=== PATIENT | female | born 1965 | race Caucasian/White ===

== ENCOUNTER 2018-07-14 08:04 | Emergency (ER) | payer BC ==
[2018-07-14 08:22] VITALS: BP 140/85
--- NOTE | 2018-07-14 08:31 | UC ---
Respiratory Complaint HPI - HPI Summary HPI Summary: Per food editor "c/o productive cough and chest congestion x 4 days. States diagnosed with bronchitis last week. " -no fever. no sinus pain. no wheezing. biggest c/o is PND. uses mucinex nasal spray -she was on amox for ear infection just prior to onset. so was her when his sx started. he was given prednisone. -she was on low dose prednisone in past w/o any complications. - History of Current Complaint Chief Complaint: UCRespiratory Stated Complaint: COUGH,CONGESTION Time Seen by Provider: 07/14/18 08:16 Pain Intensity: 0 - Allergies/Home Medications Allergies/Adverse Reactions: Allergies Allergy/AdvReac Type Severity Reaction Status Date / Time erythromycin base Allergy Hives Verified 07/14/18 08:19 morphine Allergy Headache Verified 07/14/18 08:19 Home Medications: Home Medications Chlorpheniramine/Dextromethorp [Coricidin Hbp Cough & Cold Tab] 1 tab PO BID 07/31 [History Confirmed 07/14/18] PMH/Surg Hx/FS Hx/Imm Hx Previously Healthy: Yes - Surgical History Surgical History: Yes Surgery Procedure, Year, and Place: Cscection. hysterectomy. ooprechtomy. knee surgery. Removal of kidney stone - Family History Known Family History: Positive: Hypertension - Social History Alcohol Use: Rare Substance Use Type: None Smoking Status (MU): Never Smoked Tobacco Review of Systems All Other Systems Reviewed And Are Negative: Yes Constitutional: Positive: Negative Skin: Positive: Negative Eyes: Positive: Negative ENT: Positive: Nasal Discharge Respiratory: Positive: Cough Cardiovascular: Positive: Negative Gastrointestinal: Positive: Negative Genitourinary: Positive: Negative Motor: Positive: Negative Neurovascular: Positive: Negative Musculoskeletal: Positive: Negative Neurological: Positive: Negative Psychological: Positive: Negative Is Patient Immunocompromised?: No Physical Exam Triage Information Reviewed: Yes Appearance: Well-Nourished, Ill-Appearing - + nasal congestion, stuffy nose. Vital Signs: Initial Vital Signs Temp 98.5 F 07/14/18 08:15 Pulse 86 07/14/18 08:15 Resp 18 07/14/18 08:15 BP 140/85 07/14/18 08:15 Pulse Ox 98 07/14/18 08:15 Vital Signs Reviewed: Yes Eye Exam: Normal ENT: Positive: Pharyngeal erythema - + PMD, TMs normal, Uvula midline. Negative : TM bulging, TM dull, TM red, Tonsillar swelling, Tonsillar exudate, Sinus tenderness Neck exam: Normal Neck: Positive: Supple, Nontender, No Lymphadenopathy Respiratory Exam: Normal Respiratory: Positive: Lungs clear, No respiratory distress, No accessory muscle use, Decreased breath sounds - mild b/l. no wheezing.. Negative: Crackles, Rhonchi, Stridor, Wheezing Cardiovascular Exam: Normal Cardiovascular: Positive: RRR Abdominal Exam: Normal Abdomen Description: Positive: Nontender, Soft Musculoskeletal Exam: Normal Neurological Exam: Normal Psychological Exam: Normal Skin Exam: Normal UC Diagnostic Evaluation - Laboratory O2 Sat by Pulse Oximetry: 98 Respiratory Course/Dx - Course Course Of Treatment: no e/o bacterial infection. bronchitis. albuterol & medrol dose pack. -recommend netti pot and flonase. -f/u if sx increase or persist, she is very agreeable w/ plan - Differential Dx/Diagnosis Differential Diagnosis/HQI/PQRI: Asthma, Bronchitis, Lower Resp Infection, Sinusitis Provider Diagnosis: Bronchitis Discharge - Sign-Out/Discharge Documenting (check all that apply): Patient Departure All imaging exams completed and their final reports reviewed: No Studies - Discharge Plan Condition: Stable Disposition: HOME Prescriptions: Albuterol HFA INHALER* [Ventolin HFA Inhaler*] 2 puff INH Q4H PRN 15 Days #1 mdi PRN Reason: Cough methylPREDNISolone [Medrol Dosepak 4 MG*] 4 mg PO DAILY #1 haim Patient Education Materials: Acute Bronchitis (ED) Referrals: Clinton Jalloh MD [Primary Care Provider] - Additional Instructions: There is no evidence for any bacterial infection at this time. -We discussed risks of prednisone including but not limited to anxiety, agitation, insomnia, GI upset, elevated blood pressures and blood sugar readings , adrenal crisis and avascular necrosis of the hip. -The albuterol will help the cough as well. - Billing Disposition and Condition Condition: STABLE Disposition: Home
== END 2018-07-14 08:59 | disposition home or self-care (01) ==
LOC: UCCORT 08:04
DX: J40 Bronchitis, not specified as acute or chronic (principal); R09.82 Postnasal drip; R09.81 Nasal congestion; R09.89 Other specified symptoms and signs involving the circulatory and respiratory systems; Z88.1 Allergy status to other antibiotic agents; Z88.5 Allergy status to narcotic agent
CPT/HCPCS: 99212; G0463

== ENCOUNTER 2019-07-21 11:34 | Emergency (ER) | payer BC ==
--- OUTSIDE RECORDS SUMMARY | 2019-07-21 11:44 | XMS REPORT | Continuity of Care Document ---
:1965 External Reference #:[id number] Author Name Clinton Jalloh M.D. Address [address] [facility] [address] [place] [address] Problems Active Problems Provider Date Uric acid urolithiasis Juma Kennedy BUMPER OPERATOR Onset: 01/11/2012 Benign essential hypertension Clinton Jalloh M.D. Onset: 01/11/2012 Refractory migraine with aura Clinton Jalloh M.D. Onset: 01/11/2012 Arthralgia of the lower leg Clinton Jalloh M.D. Onset: 01/11/2012 Degeneration of cervical intervertebral disc Juma Kennedy BUMPER OPERATOR Onset: 2011 Kidney stone Juma Kennedy BUMPER OPERATOR Onset: 04/28/2015 Essential hypertension Juma Kennedy BUMPER OPERATOR Onset: 04/28/2015 Social History Type Date Description Comments Sex Unknown ETOH Use Denies alcohol use Tobacco Use Start: Unknown Patient has never smoked Smoking Status Reviewed: 06/27/17 Patient has never smoked Seat Belt/Car Seat Always uses seat belt Smoke Alarms Carbon Monoxide Detector: Yes Smoke Alarms Yes Allergies, Adverse Reactions, Alerts Active Allergies Reaction Severity Comments Date Erythromycin 01/11/2012 Morphine Augmentin Urticaria 06/22/2015 Medications Active Medications SIG Qnty Indications Ordering Provider Date Ibuprofen 1 by mouth three 90tabs M54.5 Clinton Jalloh, 02/05/2018 800mg Tablets times a day as M.D. needed M54.2 M15.9 Cyclobenzaprine HCL 1 tab by mouth 90tabs M54.5 Clinton Jalloh, 2017 10mg Tablets three times a day M.D. as needed for muscle spasms Atenolol 1/2 tab by mouth 45tabs I10 Shubham Ronnidanilo Menon, 05/31/2017 100mg Tablets every evening M.D. Alprazolam 1 tab by mouth 45tabs F41.9 ShubhamClinton yu, 06/17/2016 0.5mg Tablets three times a day M.D. Sumatriptan Succinate tab one at onset 30tabs G43.119 Clinton Jalloh, 100mg of h/a may repeat M.D. Tablets x1 after 2 hours G43.009 Hydrochlorothiazide tab one by mouth 90caps I10 Clinton Jalloh, 12.5mg Capsules every day M.D. Immunizations CPT Code Status Date Vaccine Lot # [id number] Refused 04/28/2015 Flu Vaccine [id number] Refused 04/10/2014 Flu Vaccine Vital Signs Date Vital Result Comment 05/24/2019 8:34am BP Systolic 124 mmHg BP Diastolic 66 mmHg Height 63.5 inches 5'3.50" Weight 234.00 lb BMI (Body Mass Index) 40.8 kg/m2 Heart Rate 67 /min Respiratory Rate 16 /min 03/06/2019 11:05am BP Systolic 122 mmHg BP Diastolic 64 mmHg Height 63.5 inches 5'3.50" Weight 236.00 lb BMI (Body Mass Index) 41.1 kg/m2 Heart Rate 74 /min Respiratory Rate 16 /min Results Test Acquired Date Facility Test Result H/L Range Note Laboratory test 05/24/2019 [facility] T[facility], <pending> finding [address] [facility] (607)- - Uric Acid <pending> Vitamin D 25 Hydroxy <pending> Procedures Date Code Description Status 05/24/2019 69601 EKG Completed Medical Devices Description No Information Available Encounters Type Date Location Provider Dx Diagnosis Office Visit 05/24/2019 Etelvina ShubhamClinton yu, I10 Essential (primary) 8:30a M.D. hypertension E78.2 Mixed hyperlipidemia E66.01 Morbid (severe) obesity due to excess calories M54.2 Cervicalgia F41.9 Anxiety disorder, unspecified N20.0 Calculus of kidney L20.9 Atopic dermatitis, unspecified J30.9 Allergic rhinitis, unspecified G43.009 Migraine w/o aura, not intractable, w/o status migrainosus R07.9 Chest pain, unspecified M54.5 Low back pain M15.9 Polyosteoarthritis, unspecified E55.9 Vitamin D deficiency, unspecified F43.21 Adjustment disorder with depressed mood K57.32 Dvtrcli of lg int w/o perforation or abscess w/o bleeding Z00.01 Encounter for general adult medical exam w abnormal findings I45.10 Unspecified right bundle-branch block Office Visit 03/06/2019 11:00a Clinton Dinero, I10 Essential ( primary) M.DSushma hypertension E78.2 Mixed hyperlipidemia E66.01 Morbid (severe) obesity due to excess calories M54.2 Cervicalgia F41.9 Anxiety disorder, unspecified N20.0 Calculus of kidney L20.9 Atopic dermatitis, unspecified J30.9 Allergic rhinitis, unspecified G43.009 Migraine w/o aura, not intractable, w/o status migrainosus R07.9 Chest pain, unspecified M54.5 Low back pain M15.9 Polyosteoarthritis, unspecified E55.9 Vitamin D deficiency, unspecified F43.21 Adjustment disorder with depressed mood Assessments Date Code Description Provider 05/24/2019 I10 Essential (primary) hypertension Clinton Jalloh M.D. 05/24/2019 E78.2 Mixed hyperlipidemia Clinton Jalloh M.D. 05/24/2019 E66.01 Morbid (severe) obesity due to excess Clinton Jalloh M.D. calories 05/24/2019 M54.2 Cervicalgia Clinton Jalloh M.D. 05/24/2019 F41.9 Anxiety disorder, unspecified Clinton Jalloh M.D. 05/24/2019 N20.0 Calculus of kidney Clinton Jalloh M.D. 05/24/2019 L20.9 Atopic dermatitis, unspecified Clinton Jalloh M.D. 05/24/2019 J30.9 Allergic rhinitis, unspecified Clinton Jalloh M.D. 05/24/2019 G43.009 Migraine without aura, not intractable, Clinton Jalloh M.D. without status migrainosus 05/24/2019 R07.9 Chest pain, unspecified Clinton Jalloh M.D. 05/24/2019 M54.5 Low back pain Clinton Jalloh M.D. 05/24/2019 M15.9 Polyosteoarthritis, unspecified Clinton Jalloh M.D. 05/24/2019 E55.9 Vitamin D deficiency, unspecified Clinton Jalloh M.D. 05/24/2019 F43.21 Adjustment disorder with depressed mood Clinton Jalloh M.D. 05/24/2019 K57.32 Diverticulitis of large intestine without Clinton Jalloh M.D. perforation or abscess without bleeding 05/24/2019 Z00.01 Encounter for general adult medical Clinton Jalloh M.D. examination with abnormal findings 05/24/2019 I45.10 Unspecified right bundle-branch block Clinton Jalloh M.D. 03/06/2019 I10 Essential (primary) hypertension Clinton Jalloh M.D. 03/06/2019 E78.2 Mixed hyperlipidemia Clinton Jalloh M.D. 03/06/2019 E66.01 Morbid (severe) obesity due to excess Clinton Jalloh M.D. calories 03/06/2019 M54.2 Cervicalgia Clinton Jalloh M.D. 03/06/2019 F41.9 Anxiety disorder, unspecified Clinton Jalloh M.D. 03/06/2019 N20.0 Calculus of kidney Clinton Jalloh M.D. 03/06/2019 L20.9 Atopic dermatitis, unspecified Clinton Jalloh M.D. 03/06/2019 J30.9 Allergic rhinitis, unspecified Clinton Jalloh M.D. 03/06/2019 G43.009 Migraine without aura, not intractable, Clinton Jalloh M.D. without status migrainosus 03/06/2019 R07.9 Chest pain, unspecified Clinton Jalloh M.D. 03/06/2019 M54.5 Low back pain Clinton Jalloh M.D. 03/06/2019 M15.9 Polyosteoarthritis, unspecified Clinton Jalloh M.D. 03/06/2019 E55.9 Vitamin D deficiency, unspecified Clinton Jalloh M.D. 03/06/2019 F43.21 Adjustment disorder with depressed mood Clinton Jalloh M.D. Plan of Treatment Future Appointment(s):06/07/2019 2:30 pm - Clinton Jalloh M.D. at [email or web address] - Clinton Jalloh M.D.I10 Essential (primary) hypertensionComments:CHECK BP TIW ( PRN)F/U LABDIET AND FLUID COUNSELING LOW SODIUM DIETWT LOSSF/U LABE78.2 Mixed hyperlipidemiaComments:DIET REVIEWED CONTINUE DIETWT LOSSF/U LAB FBWE66.01 Morbid (severe) obesity due to excess caloriesComments:WT LOSS COUNCELLINGEXERCISEDIET COUNCILLING HANDOUT ON DIET GIVEN TO PT WITH EXTENSIVE TECHING EXTENSIVE TEACHING ON SURGICAL TX FEGDOLVJ50.2 CervicalgiaComments: EXERCISE/HEAT /MESSAGEAVOID HEAVY LIFTING WT LOSSTYLENOL OR MOTRIN PRNF41.9 Anxiety disorder, unspecifiedComments:COUNCELLING AND REASSURANCE RELAXATION TECHNIQUESSTRESSORS IN LIFE AVOID ALL ENERGY/HIGH CAFFEINE DRINKS DUR ZVZRTIJY46.0 Calculus of kidneyComments:F/U WITH UROLOGY PRNL20.9 Atopic dermatitis, unspecifiedComments:SKIN CARE INSTRUCTIONS LOTION OR BABY OIL 2-3 APPLICATION PER DAYUSE MOISTURIZING SOAPAVOID PROLONGED WATER EXPOSUREAVOID USING HOT WATER IN JAZYRTO78.9 Allergic rhinitis, unspecifiedComments:INCREASE PO FLUID USE ANTIHISTAMINE PRN SECOND HAND SMOKING JLJYHDXTCD17.009 Migraine without aura, not intractable, without status migrainosusComments:TYLENOL OR MOTRIN PRNRELAXATION/AVOID XAHEYAPIRN65.9 Chest pain, unspecifiedComments: EXERCISE/HEAT/MESSAGE TYLENOL OR MOTRIN PRNHEAT PACKM54.5 Low back painComments: EXERCISE/HEAT /MESSAGEAVOID HEAVY LIFTING WT LOSSTYLENOL OR MOTRIN PRN DUR XIZFOMDI82.9 Polyosteoarthritis, unspecifiedComments:EXERCISE/HEAT/ MESSAGETYLENOL OR MOTRIN PRNAVOID HEAVY LIFTINGWT LOSS DUR UULLTPIX72.9 Vitamin D deficiency, unspecifiedComments:INCREASE EXPOSURE TO SUNREVIEW OF DIETF43.21 Adjustment disorder with depressed moodComments:COUNCELLING AND REASSURANCE RELAXATION TECHNIQUESSTRESSORS IN LIFE AVOID ALL ENERGY/HIGH CAFFEINE EDMVIZH36.32 Diverticulitis of large intestine without perforation or abscess without bleedingComments:TYLENOL OR MOTRIN PRNINCREASE PO FLUID LAXATIVE PRN F/ U DIRECTEDF/U WITH GI PRNZ00.01 Encounter for general adult medical examination with abnormal findingsComments:GOOD NUTRITION /EXERCISEDENTAL/ FLOSSING/ SELF CAREDROWNING/ SUN SAFETYSEAT BELT/ DRIVING SAFETYSPORT BIKE/ HELMET USESPORTS/ INJURY PREVENTIONVIOLENCE PREVENTION/ GUN SAFETYPARENTING ADVICE"SAFE AT HOME"SEX EDUCATION/ COUNSELINGBREAST/ TESTICULAR SELF EXAMEDUCATION GOALS/ ACTIVITIESLIMIT TV/ INTERNETUSETOBACCO/ ALCOHOL/ DRUGS/ INHALANTSPEER REFUSAL SKILLSSOCIAL INTERACTIONFAMILY FUNCTIONINGSELF CONTROLDEPRESSION/ ANXIETYNEXT APPOINTMENTYEARLY PHYSICAL WELLNESS EVALUATION F /U WITH OB /E [employer] PROJECT MANAGER FOR PAP AND QMPXEUYWPK27.10 Unspecified right bundle-branch blockComments:STABLE AND ASYMPTOMATICF/U WITH CARDIOLOGY PRN Functional Status Description No Information Available Mental Status Description No Information Available Referrals Description No Information Available
--- OUTSIDE RECORDS SUMMARY | 2019-07-21 11:44 | XMS REPORT | Continuity of Care Document ---
:1965 External Reference #:[id number] Author Name Clinton Jalloh M.D. Address [address] [facility] [address] [place] [address] Problems Active Problems Provider Date Uric acid urolithiasis Juma Kennedy PUNCH PRESS OPERATOR HELPER Onset: 01/11/2012 Benign essential hypertension Clinton Jalloh M.D. Onset: 01/11/2012 Refractory migraine with aura Clinton Jalloh M.D. Onset: 01/11/2012 Arthralgia of the lower leg Clinton Jalloh M.D. Onset: 01/11/2012 Degeneration of cervical intervertebral disc Juma Kennedy PUNCH PRESS OPERATOR HELPER Onset: 2011 Kidney stone Juma Kennedy PUNCH PRESS OPERATOR HELPER Onset: 04/28/2015 Essential hypertension Juma Kennedy PUNCH PRESS OPERATOR HELPER Onset: 04/28/2015 Social History Type Date Description [...] Atenolol 1/2 tab by mouth 45tabs I10 Clinton Jalloh., 05/31/2017 100mg Tablets every evening M.D. Alprazolam 1 tab by mouth 45tabs F41.9 Clinton Jalloh., 06/17/2016 0.5mg Tablets three times a day M.D. Sumatriptan Succinate tab one at onset 30tabs G43.119 Clinton Jalloh., 100mg of h/a may repeat M.D. Tablets x1 after 2 hours G43.009 Hydrochlorothiazide tab one by mouth 90caps I10 Clinton Jalloh., 12.5mg Capsules every day M.D. Immunizations CPT Code Status Date Vaccine Lot # [id number] Refused 04/28/2015 Flu Vaccine 34863 Refused 04/10/2014 Flu Vaccine Vital Signs Date Vital Result Comment 05/27/2019 2:04pm BP Systolic 128 mmHg BP Diastolic 64 mmHg Height 63.5 inches 5'3.50" Weight 234.00 lb BMI (Body Mass Index) 40.8 kg/m2 Heart Rate 89 /min Respiratory Rate 16 /min 05/24/2019 8:34am BP Systolic 124 mmHg BP Diastolic 66 mmHg Height 63.5 inches 5'3.50" Weight 234.00 lb BMI (Body Mass Index) 40.8 kg/m2 Heart Rate 67 /min Respiratory Rate 16 /min Results Test Acquired Date Facility Test Result H/L Range Note CBC With Diff 05/24/2019 [facility] WBC 7.6 10*3/uL (4.1-11.0) [address] [facility] (607)- - RBC 5.29 10*6/uL (4.00-5.40) HGB 14.8 g/dL (12.0-16.0) HCT 44.2 % (36.0-47.0) MCV 83.7 fL (80.0-95.0) MCH 28.0 pg (27.0-32.0) MCHC 33.5 g/dL (32.0-36.0) RDW 13.9 % (10.5-14.5) PLT 232 10*3/uL (150-450) MPV 8.8 fL (7.1-10.7) Neut % 53.3 % (35.0-75.0) Lymph % 37.0 % (16.0-52.0) Payne % 6.4 % (0.0-8.0) Eos % 2.4 % (0.0-5.0) Baso % 0.9 % (0.0-4.0) Neut # 4.1 10*3/uL (1.8-7.7) Lymph # 2.8 10*3/uL (1.2-4.8) Payne # 0.5 10*3/uL (0.0-0.8) Eos # 0.2 10*3/uL (0.0-0.5) Baso # 0.1 10*3/uL (0.0-0.2) CMP 05/24/2019 [facility] Sodium 142 mmol/L (136-145) [address] [facility] (607)- - Potassium 3.9 mmol/L (3.6-5.2) Chloride 104 mmol/L (100-108) Co2 29 mmol/L (22-31) Anion Gap 9 mmol/L (7-16) Urea Nitrogen 17 mg/dL (7-24) Creatinine 0.82 mg/dL (0.60-1.00) BUN/Creat Ratio 20.7 RATIO High (10.0-20.0) Glucose 84 mg/dL (70-99) Calcium 9.7 mg/dL (8.4-10.2) Total Protein 7.3 g/dL (6.4-8.2) Albumin 4.4 g/dL (3.5-4.6) Globulin 2.9 g/dL (2.7-4.3) Alb/Glob Ratio 1.5 RATIO Alkaline Phosphatase 59 U/L (45-117) Bilirubin,Total 0.5 mg/dL (0.0-1.0) Ast (Sgot) 18 U/L (11-39) Alt (SGPT) 38 U/L (12-78) GFR >60 ml/min/1.73m2 (>59) GFR ( Amer) >60 ml/min/1.73m2 (>59) GFR Interpretation <SEE NOTE> 1 Lipid 05/24/2019 [facility] Cholesterol @ 210 mg/dL High (0-200) [facility] (607)- - Triglyceride @ 125 mg/dL (30-200) HDL Cholesterol @ 51 mg/dL (>40) 2 Chol/HDL Ratio 4.1 RATIO 3 LDL Chol (Calc) 134 mg/dL High (<130) 4 Laboratory 05/24/2019 [facility] TSH,Ultrasensitive @ 1.390 (0.360- 4.170) test finding [facility] mIU/L (607)- - Uric Acid 7.3 mg/dL High (2.6-6.0) 25 Hydroxy Vit D @ 27 ng/mL Low (31-100) 5 1 NORMAL KIDNEY FUNCTION OR MILD DISEASE - GFR >OR= 60 CHRONIC KIDNEY DISEASE - GFR 15 - 59 RENAL FAILURE - GFR <15 Est. GFR calculation based on the MDRD study equation, which assumes a steady state for creatinine. Est. GFR should not be used for medication dosing. 2 PER NCEP ATP III GUIDELINES: RESULTS LOWER THAN 40 MG/DL ARE SUGGESTIVE OF INCREASED RISK FOR CORONARY ARTERY DISEASE. RESULTS > OR = TO 60 MG/DL ARE CONSIDERED A NEGATIVE RISK FACTOR. 3 INTERPRETATION OF CHOL-HDL RATIO CHD RISK FEMALE MALE VERY HIGH >8.3 >14.3 HIGH 5.6- 8.3 6.7- 14.3 AVERAGE 3.7- 5.6 4.0- 6.7 BELOW AVERAGE 2.5- 3.7 2.7- 4.0 PROTECTED <2.5 <2.7 4 PER NCEP ATP III GUIDELINES: OPTIMAL < 100 NEAR OPTIMAL 100 - 129 BORDERLINE HIGH 130 - 159 HIGH 160 - 189 VERY HIGH > 189 5 A REVIEW OF THE LITERATURE SUGGESTS THE FOLLOWING RANGES FOR THE CLASSIFICATION OF 25-OH VITAMIN D STATUS: VITAMIN D STATUS 25-OH VITAMIN D DEFICIENCY <20 NG/ML INSUFFICIENCY 20-30 NG/ML SUFFICIENCY 31 - 100 NG/ML TOXICITY > 100 NG/ML A PEDIATRIC REFERENCE RANGE HAS NOT BEEN ESTABLISHED USING THIS METHOD. Procedures Date Code Description Status 05/24/2019 84093 EKG Completed Medical Devices Description No Information Available Encounters Type Date Location Provider Dx Diagnosis Office Visit 05/24/2019 Clinton Dinero, I10 Essential (primary) 8:30a M.D. hypertension E78.2 [...] 11:00a Clinton Dinero, I10 Essential ( primary) M.D. hypertension E78.2 Mixed hyperlipidemia E66.01 Morbid [...] depressed mood Assessments Date Code Description Provider 05/27/2019 I10 Essential (primary) hypertension Clinton Jalloh M.D. 05/27/2019 E78.2 Mixed hyperlipidemia Clinton Jalloh M.D. 05/27/2019 E66.01 Morbid (severe) obesity due to excess Clinton Jalloh M.D. calories 05/27/2019 M54.2 Cervicalgia Clinton Jalloh M.D. 05/27/2019 F41.9 Anxiety disorder, unspecified Clinton Jalloh M.D. 05/27/2019 N20.0 Calculus of kidney Clinton Jalloh M.D. 05/27/2019 L20.9 Atopic dermatitis, unspecified Clinton Jalloh M.D. 05/27/2019 J30.9 Allergic rhinitis, unspecified Clinton Jalloh M.D. 05/27/2019 G43.009 Migraine without aura, not intractable, Clinton Jalloh M.D. without status migrainosus 05/27/2019 R07.9 Chest pain, unspecified Clinton Jalloh M.D. 05/27/2019 M54.5 Low back pain Clinton Jalloh M.D. 05/27/2019 M15.9 Polyosteoarthritis, unspecified Clinton Jalloh M.D. 05/27/2019 E55.9 Vitamin D deficiency, unspecified Clinton Jalloh M.D. 05/27/2019 F43.21 Adjustment disorder with depressed mood Clinton Jalloh M.D. 05/27/2019 K57.32 Diverticulitis of large intestine without Clinton Jalloh M.D. perforation or abscess without bleeding 05/27/2019 I45.10 Unspecified right bundle-branch block Clinton Jalloh M.D. 05/24/2019 I10 Essential (primary) hypertension Clinton Jalloh [...] 05/24/2019 E55.9 Vitamin D deficiency, unspecified Clinton Jallho M.D. 05/24/2019 F43.21 Adjustment disorder with depressed [...] 2:30 pm - Clinton Jalloh M.D. at [email or web address] - Clinton Jalloh M.D.I10 Essential (primary) hypertensionComments:CHECK BP TIW ( PRN)F/U LABDIET AND FLUID COUNSELING LOW SODIUM DIETWT LOSSF/U LABE78.2 Mixed hyperlipidemiaComments:DIET REVIEWED CONTINUE DIETWT LOSSF/U LAB FBWE66.01 Morbid (severe) obesity due to excess caloriesComments:WT LOSS COUNCELLINGEXERCISEDIET COUNCILLING HANDOUT ON DIET GIVEN TO PT WITH EXTENSIVE TECHING EXTENSIVE TEACHING ON SURGICAL TX YWPTKJMD68.2 CervicalgiaComments: EXERCISE/HEAT /MESSAGEAVOID HEAVY LIFTING WT LOSSTYLENOL OR MOTRIN PRNF41.9 Anxiety disorder, unspecifiedComments:COUNCELLING AND REASSURANCE RELAXATION TECHNIQUESSTRESSORS IN LIFE AVOID ALL ENERGY/HIGH CAFFEINE DRINKS DUR XOKVZLPD58.0 Calculus of kidneyComments:F/U WITH UROLOGY PRNL20.9 Atopic dermatitis, unspecifiedComments:SKIN CARE INSTRUCTIONS LOTION OR BABY OIL 2-3 APPLICATION PER DAYUSE MOISTURIZING SOAPAVOID PROLONGED WATER EXPOSUREAVOID USING HOT WATER IN NEANMUU57.9 Allergic rhinitis, unspecifiedComments:INCREASE PO FLUID USE ANTIHISTAMINE PRN SECOND HAND SMOKING [id number] Migraine without aura, not intractable, without status migrainosusComments:TYLENOL OR MOTRIN PRNRELAXATION/AVOID CCVCNMDTRG09.9 Chest pain, unspecifiedComments: EXERCISE/HEAT/MESSAGE TYLENOL OR MOTRIN PRNHEAT PACKM54.5 Low back painComments: EXERCISE/HEAT /MESSAGEAVOID HEAVY LIFTING WT LOSSTYLENOL OR MOTRIN PRN DUR GRETXMNG97.9 Polyosteoarthritis, unspecifiedComments:EXERCISE/HEAT/ MESSAGETYLENOL OR MOTRIN PRNAVOID HEAVY LIFTINGWT LOSS DUR NFLSCCVD69.9 Vitamin D deficiency, unspecifiedComments:INCREASE EXPOSURE TO SUNREVIEW OF DIETF43.21 Adjustment disorder with depressed moodComments:COUNCELLING AND REASSURANCE RELAXATION TECHNIQUESSTRESSORS IN LIFE AVOID ALL ENERGY/HIGH CAFFEINE EHMTNBH89.32 Diverticulitis of large intestine without perforation or abscess without bleedingComments:TYLENOL OR MOTRIN PRNINCREASE PO FLUID LAXATIVE PRN F/ U DIRECTEDF/U WITH GI PRNI45.10 Unspecified right bundle-branch blockComments :STABLE AND ASYMPTOMATICF/U WITH CARDIOLOGY PRN Functional Status Description No Information Available Mental Status Description No Information Available Referrals Description No Information Available
[2019-07-21 12:17] VITALS: BP 147/85
[2019-07-21 14:03] LABS: Influenza A Molecular POSITIVE (Negative)
--- NOTE | 2019-07-21 14:28 | UC ---
FLU HPI - HPI Summary HPI Summary: Pt presents with c/o sudden onset of fever, chills, body aches, cough and ear pain X 2 days. - History of Current Complaint Chief Complaint: UCHeadahugh Stated Complaint: COUGH,CHILLS,FEVER,DIARRHEA Time Seen by Provider: 07/21/19 13:52 Hx Obtained From: Patient ?: No Onset/Duration: Sudden Onset, Lasting Days, Still Present Severity Currently: Moderate Severity Initially: Moderate Pain Intensity: 2 Associated Signs & Symptoms: Positive: Fever, Myalgia, Cough, Nasal Congestion Related Hx: Possible Flu/Infectious Exposure - Risk Factors Influenza Risk Factors: Negative - Allergy/Home Medications Allergies/Adverse Reactions: Allergies Allergy/AdvReac Type Severity Reaction Status Date / Time erythromycin base Allergy Hives Verified 07/21/19 12:17 morphine Allergy Headache Verified 07/21/19 12:17 PMH/Surg Hx/FS Hx/Imm Hx Previously Healthy: Yes - Surgical History Surgical History: Yes Surgery Procedure, Year, and Place: Cscection. hysterectomy. ooprechtomy. knee surgery. Removal of kidney stone - Family History Known Family History: Positive: Hypertension - Social History Occupation: Employed Full-time Lives: With Family Alcohol Use: Occasionally Substance Use Type: None Smoking Status (MU): Never Smoked Tobacco Have You Smoked in the Last Year: No - Immunization History Vaccination Up to Date: No Review of Systems All Other Systems Reviewed And Are Negative: Yes Constitutional: Positive: Fever, Chills, Fatigue Skin: Positive: Negative Eyes: Positive: Negative ENT: Positive: Ear Ache, Sinus Congestion Respiratory: Positive: Cough Cardiovascular: Positive: Negative Gastrointestinal: Positive: Negative Genitourinary: Positive: Negative Motor: Positive: Negative Neurovascular: Positive: Negative Musculoskeletal: Positive: Myalgia Neurological: Positive: Headache Psychological: Positive: Negative Is Patient Immunocompromised?: No Physical Exam Triage Information Reviewed: Yes Appearance: Ill-Appearing Vital Signs: Initial Vital Signs Temp 97.6 F 07/21/19 12:13 Pulse 72 07/21/19 12:13 Resp 18 07/21/19 12:13 BP 147/85 07/21/19 12:13 Pulse Ox 99 07/21/19 12:13 Vital Signs Reviewed: Yes Eye Exam: Normal ENT: Positive: Nasal congestion, TM bulging Dental Exam: Normal Neck exam: Normal Respiratory Exam: Normal Cardiovascular Exam: Normal Musculoskeletal Exam: Normal Neurological Exam: Normal Psychological Exam: Normal Skin Exam: Normal Flu Course/Dx - Differential Dx/Diagnosis Differential Diagnosis/HQI/PQRI: Influenza, Upper Respiratory Infection Provider Diagnosis: Influenza A Discharge ED - Sign-Out/Discharge Documenting (check all that apply): Patient Departure All imaging exams completed and their final reports reviewed: No Studies - Discharge Plan Condition: Stable Disposition: HOME Prescriptions: Oseltamivir CAP* [Tamiflu CAP*] 75 mg PO Q12H #10 cap Patient Education Materials: Influenza (ED) Forms: *Work Release Referrals: Clinton Jalloh MD [Primary Care Provider] - If Needed - Billing Disposition and Condition Condition: STABLE Disposition: Home
== END 2019-07-21 14:19 | disposition home or self-care (01) ==
LOC: UCCORT 11:34
DX: J10.1 Influenza due to other identified influenza virus with other respiratory manifestations (principal); Z88.1 Allergy status to other antibiotic agents; Z88.5 Allergy status to narcotic agent
CPT/HCPCS: 99211; G0463

== ENCOUNTER 2019-07-27 09:07 | Emergency (ER) | payer BC ==
[2019-07-27 09:21] VITALS: BP 146/88
--- NOTE | 2019-07-27 09:42 | UC ---
Respiratory Complaint HPI - HPI Summary HPI Summary: Pt presents with c/o continued cough that began last week along with flu like symptoms. P twas diagnosed with flu last week but states that cough is worsening and and is unable to sleep due to cough. - History of Current Complaint Chief Complaint: UCRespiratory Stated Complaint: COUGH CONGESTION Time Seen by Provider: 07/27/19 09:22 Hx Obtained From: Patient ?: No Onset/Duration: Gradual Onset, Lasting Days, Still Present Timing: Intermittent Episodes Severity Initially: Mild Severity Currently: Moderate Pain Intensity: 0 Character: Cough: Nonproductive Aggravating Factors: Exertion, Deep Breaths, Recumbent Position Alleviating Factors: Nothing Associated Signs And Symptoms: Positive: Wheezing, URI - Risk Factors Pulmonary Embolism Risk Factors: Negative Cardiac Risk Factors: Hypertension Pseudomonas Risk Factors: Negative Tuberculosis Risk Factors: Negative - Allergies/Home Medications Allergies/Adverse Reactions: Allergies Allergy/AdvReac Type Severity Reaction Status Date / Time erythromycin base Allergy Hives Verified 07/27/19 09:22 morphine Allergy Headache Verified 07/27/19 09:22 oseltamivir [From Tamiflu] Allergy Rash Verified 07/27/19 09:22 PMH/Surg Hx/FS Hx/Imm Hx Previously Healthy: Yes Cardiovascular History: Hypertension - Surgical History Surgical History: Yes Surgery Procedure, Year, and Place: Cscection. hysterectomy. ooprechtomy. knee surgery. Removal of kidney stone - Family History Known Family History: Positive: Hypertension - Social History Occupation: Employed Full-time Lives: With Family Alcohol Use: Occasionally Substance Use Type: None Smoking Status (MU): Never Smoked Tobacco Have You Smoked in the Last Year: No - Immunization History Vaccination Up to Date: No Review of Systems All Other Systems Reviewed And Are Negative: Yes Constitutional: Positive: Fatigue Skin: Positive: Negative Eyes: Positive: Negative ENT: Positive: Sinus Congestion Respiratory: Positive: Shortness Of Breath, Cough Cardiovascular: Positive: Negative Gastrointestinal: Positive: Negative Genitourinary: Positive: Negative Motor: Positive: Negative Neurovascular: Positive: Negative Musculoskeletal: Positive: Negative Neurological/Mental Status: Positive: Negative Psychological: Positive: Negative Is Patient Immunocompromised?: No Physical Exam Triage Information Reviewed: Yes Appearance: Ill-Appearing Vital Signs: Initial Vital Signs Temp 97.8 F 07/27/19 09:16 Pulse 70 07/27/19 09:16 Resp 20 02/15/20 09:16 BP 146/88 07/27/19 09:16 Pulse Ox 100 07/27/19 09:16 Vital Signs Reviewed: Yes Eye Exam: Normal ENT: Positive: Nasal congestion Dental Exam: Normal Neck exam: Normal Respiratory: Positive: Decreased breath sounds Cardiovascular Exam: Normal Musculoskeletal Exam: Normal Neurological Exam: Normal Psychological Exam: Normal Skin Exam: Normal Respiratory Course/Dx - Differential Dx/Diagnosis Differential Diagnosis/HQI/PQRI: Asthma, Bronchitis, Exacerbation Of COPD, Influenza Provider Diagnosis: Post-viral cough syndrome Discharge ED - Sign-Out/Discharge Documenting (check all that apply): Patient Departure All imaging exams completed and their final reports reviewed: No Studies - Discharge Plan Condition: Stable Disposition: HOME Prescriptions: Albuterol HFA INHALER* [Ventolin HFA Inhaler*] 1 puff INH Q6H PRN #1 mdi PRN Reason: Sob/Wheezing Benzonatate CAP* [Tessalon 100 MG CAP*] 100 - 200 mg PO Q8H PRN #30 cap PRN Reason: Cough predniSONE 10 mg TAB [Deltasone 10 MG TAB*] 30 mg PO DAILY #18 tab Patient Education Materials: Acute Cough (ED) Referrals: Clinton Jalloh MD [Primary Care Provider] - If Needed - Billing Disposition and Condition Condition: STABLE Disposition: Home
== END 2019-07-27 09:51 | disposition home or self-care (01) ==
LOC: UCCORT 09:07
DX: R05 Cough (principal); I10 Essential (primary) hypertension; R53.83 Other fatigue; R06.02 Shortness of breath; Z88.1 Allergy status to other antibiotic agents; Z88.5 Allergy status to narcotic agent; Z88.8 Allergy status to other drugs, medicaments and biological substances
CPT/HCPCS: 99212; G0463